=== PATIENT | female | born 1945 | race Two or more races ===

== ENCOUNTER 2017-09-08 09:35 | Emergency (ER) | payer SELFPAY ==
[~2017-09-08] VITALS: Ht 152.4 cm; Wt 52.2 kg
--- NOTE | 2017-09-08 09:52 | NUR ---
PATIENT TO ED DT LEFT WRIST PAIN, 01/07, NON RADIATING X 3 DAYS SP FALL. LEFT WRIST NOTED WITH SWELLING, PAIN WORST IN MOVEMENT. SKIN INTACT. PT'S VSS
[2017-09-08] MEDS ORDERED: ONDANSETRON 4 MG TAB.RAPDIS ONE (09:54)
[2017-09-08] MEDS ORDERED: HYDROCODONE/APAP 5/325MG 1 EACH TABLET ONE (09:54)
[2017-09-08] MEDS ORDERED: ONDANSETRON 4 MG TAB.RAPDIS SL ONE (10:00)
[2017-09-08] MEDS ORDERED: HYDROCODONE/APAP 5/325MG 1 EACH TABLET PO ONE (10:00)
--- NOTE | 2017-09-08 10:16 | NUR ---
Patient discharged to home in stable condition. Written and verbal after care instructions given. Patient verbalizes understanding of instruction. ambulatory with a steady gait. VSS.
[2017-09-08 10:17] VITALS: BP 150/75
== END 2017-09-08 10:18 | disposition home or self-care (01) ==
LOC: ER 09:39
DX: S52.592A Other fractures of lower end of left radius, initial encounter for closed fracture (principal); S52.692A Other fracture of lower end of left ulna, initial encounter for closed fracture; W01.0XXA Fall on same level from slipping, tripping and stumbling without subsequent striking against object, initial encounter; Y93.89 Activity, other specified; Y92.89 Other specified places as the place of occurrence of the external cause; Y99.8 Other external cause status
CPT/HCPCS: 73110; A4606; Q0162; Z7610